=== PATIENT | male | born 1990 | race American Indian/Alaskan Native ===

== ENCOUNTER 2017-05-12 19:48 | Emergency (ER) | payer OTHER ==
[2017-05-12 19:55] VITALS: BP 150/95
[2017-05-12] MEDS ORDERED: ROBITUSSIN PO ONE (20:43)
--- NOTE | 2017-05-12 20:59 | Emergency Department Report ---
HPI - General Chief Complaint: Upper Respiratory Infection Time Seen by Provider: 05/12/17 20:43 - HPI HPI: he is a 26-year-old male with no prior medical history who presents to ED complaining of cough and congestion 3 days. Patient states THAT about 3 days ago with numbness and intermittent since then. Patient states he took some TheraFlu and Robitussin with no relief. Patient states coughing has gotten worse today and he was coughing so much that he had an episode of vomiting. She states cough is dry and nonproductive,he feels like he needs to cough up something but nothing coming up. He denies any fevers/chills/nausea/chest pain/redness of breath abdominal pain/ sick contacts, travel, or any other problems ED Past Medical Hx - Past Medical History Previous Medical History?: No - Surgical History Past Surgical History?: No - Social History Smoking Status: Never Smoker Substance Use Type: Alcohol - Medications Home Medications: Home Medications Medication Instructions Recorded Confirmed Last Taken Type ALBUTEROL Inhaler [ProAir HFA 2 puff IH TID #1 pump 05/12/17 Unknown Rx Inhaler] guaiFENesin [Mucinex] 600 mg PO BID #20 tab.er.12h 05/12/17 Unknown Rx ED Review of Systems ROS: Stated complaint: COUGHING Other details as noted in HPI Constitutional: denies: chills, fever Eyes: denies: eye pain, eye discharge, vision change ENT: congestion. denies: ear pain, throat pain Respiratory: cough. denies: shortness of breath, wheezing Cardiovascular: denies: chest pain, palpitations Endocrine: no symptoms reported Gastrointestinal: denies: abdominal pain, nausea, diarrhea Genitourinary: denies: urgency, dysuria Musculoskeletal: denies: back pain, joint swelling, arthralgia Skin: denies: rash, lesions Neurological: denies: headache, weakness, paresthesias Psychiatric: denies: anxiety, depression Hematological/Lymphatic: denies: easy bleeding, easy bruising Physical Exam - Physical Exam Vital Signs: Vital Signs 05/12/17 05/12/17 19:50 19:53 Temperature 98.4 F 98.4 F Pulse Rate 89 87 Respiratory 18 18 Rate Blood Pressure 150/95 150/95 O2 Sat by Pulse 93 95 Oximetry Physical Exam: GENERAL: Alert and oriented x3, no apparent distress, Normal Gait, atraumatic. HEAD: Head is normocephalic and a-traumatic. EYES: Extra ocular muscles are intact. Pupils are equal, round, and reactive to light and accommodation. EARS: symetrical, atraumatic, non tender, ear canal clear and moderate cerumen, tympanic membrance non inflamed. gross auditory nml bilaterally. NOSE: Nose symetrical, Nontender,Nares appeared normal. MOUTH:Mouth is well hydrated and without lesions. Tonsils nonerythematous or swollen, Uvula midline, Tongue not elevated. Mucous membranes are moist. Posterior pharynx clear, no exudate or lesions. Patent airways. NECK: Supple. Non edematous, No lymphadenopathy or thyromegaly. No C-spine tenderness LUNGS: Symetrical with respiration, No wheezing, no rales or crackles, CTAB. HEART: S1, S2 present, regular rate and rhythm without murmur, no rubs, no gallops. Non tender to palpation SKIN: Warm and dry, No lesions, No ulceration or induration present. ED Course Vital Signs 05/12/17 05/12/17 19:50 19:53 Temperature 98.4 F 98.4 F Pulse Rate 89 87 Respiratory 18 18 Rate Blood Pressure 150/95 150/95 O2 Sat by Pulse 93 95 Oximetry ED Medical Decision Making - Radiology Data Radiology results: report reviewed, image reviewed FINAL REPORT EXAM: XR CHEST ROUTINE 2V HISTORY: cough TECHNIQUE: Two views of the chest Comparison: None FINDINGS: Normal heart size. Mildly prominent left hilum appears to be vascular on the 2nd frontal image. Clear well expanded lungs without focal infiltrate or consolidation. Posterior costophrenic angles are clipped on the lateral projection. IMPRESSION: Mildly prominent left hilum. This appears to be a vascular shadow but lymph node or mass cannot entirely be excluded. Short interval follow-up or CT could be performed. Clear lungs. Transcribed By: LEANNE Dictated By: RAKEL RAZO Electronically Authenticated By: RAKEL RAZO Signed Date/Time: 05/12/17 6868 - Medical Decision Making 26-year-old male presents with bronchitis ED course: Patient received prednisone and Robitussin ED Chest x-ray ordered. Chest x-ray reveals no acute pulmonary infections I discussed his findings with the patient. I discussed the patient to take medication as discussed and follow up with primary care physician. I discussed with the patient that if symptoms worsen to return to ED immediately. Vital signs are normal patient is acute respiratory distress. - Differential Diagnosis bronchitis, upper respiratory infection, pneumonia Critical care attestation.: If time is entered above; I have spent that time in minutes in the direct care of this critically ill patient, excluding procedure time. ED Disposition Clinical Impression: Bronchitis Disposition: DC-01 TO HOME OR SELFCARE Is pt being admited?: No Does the pt Need Aspirin: No Condition: Stable Instructions: Chronic Bronchitis (ED) Additional Instructions: Make sure to follow up with the primary care physician as discussed. Take all your medications as you've been prescribed. If you have any worsening symptoms or develop new symptoms please return to ED immediately. Prescriptions: ALBUTEROL Inhaler [ProAir HFA Inhaler] 2 puff IH TID #1 pump guaiFENesin [Mucinex] 600 mg PO BID #20 tab.er.12h Referrals: PRIMARY CARE, [Primary Care Provider] - 3-5 Days [facility] [Outside] - 3-5 Days [facility] [Outside] - 3-5 Days [facility] [Outside] - 3-5 Days Forms: Work/School Release Form(ED) Time of Disposition: 21:07
[2017-05-12] MEDS ORDERED: DELTASONE PO ONE (21:02)
--- NOTE | 2017-05-12 21:17 | XRay Report ---
FINAL REPORT EXAM: XR CHEST ROUTINE 2V HISTORY: cough TECHNIQUE: Two views of the chest Comparison: None FINDINGS: Normal heart size. Mildly prominent left hilum appears to be vascular on the 2nd frontal image. Clear well expanded lungs without focal infiltrate or consolidation. Posterior costophrenic angles are clipped on the lateral projection. IMPRESSION: Mildly prominent left hilum. This appears to be a vascular shadow but lymph node or mass cannot entirely be excluded. Short interval follow-up or CT could be performed. Clear lungs.
== END 2017-05-12 21:57 | disposition home or self-care (01) ==
LOC: ED 19:48
DX: J40 Bronchitis, not specified as acute or chronic (principal)
CPT/HCPCS: 71020; 99283; J7512

== ENCOUNTER 2017-06-24 11:25 | Emergency (ER) | payer OTHER ==
[2017-06-24] MEDS ORDERED: NACL 0.9% 1000 ML 1,000 ML IV ONE (12:30)
[2017-06-24 13:07] LABS: Basophils % (Auto) 0.6 % (0.0-1.8); Eosinophils # (Auto) 0.2 K/mm3 (0.0-0.4); Eosinophils % (Auto) 3.4 % (0.0-4.3); Hematocrit 49.1 % (35.5-45.6); Hemoglobin 15.5 gm/dl (11.8-15.2); Lymphocytes # (Auto) 1.4 K/mm3 (1.2-5.4); Lymphocytes % (Auto) 28.5 % (13.4-35.0); Mean Corpuscular HGB Conc 32 % (32-34); Mean Corpuscular Hemoglobin 27 pg (28-32); Mean Corpuscular Volume 87 fl (84-94); Monocytes # (Auto) 0.5 K/mm3 (0.0-0.8); Monocytes % (Auto) 9.5 % (0.0-7.3); Platelet Count 165 K/mm3 (140-440); Red Blood Count 5.66 M/mm3 (3.65-5.03); Red Cell Distribution Width 14.1 % (13.2-15.2)
[2017-06-24 13:17] LABS: INR 0.95 (0.87-1.13)
[2017-06-24 13:18] LABS: Partial Thromboplastin Time 27.4 Sec. (24.2-36.6)
[2017-06-24] MEDS ORDERED: PEPCID IV ONE (13:21)
[2017-06-24] MEDS ORDERED: ZOFRAN IV ONE (13:21)
[2017-06-24 13:31] LABS: Alanine Aminotransferase 27 units/L (7-56); Albumin 4.5 g/dL (3.9-5); BUN/Creatinine Ratio 17; Blood Urea Nitrogen 17 mg/dL (9-20); Calcium 8.9 mg/dL (8.4-10.2); Creatine Kinase MB 7.7 ng/mL (0.0-4.0); Hemolysis Index 18; Lipase 26 units/L (13-60)
--- NOTE | 2017-06-24 14:09 | Emergency Department Report ---
Vomiting/Diarrhea - HPI Chief Complaint: GI Bleed Stated Complaint: VOMITING BLOOD/CHEST PUMPING Time Seen by Provider: 06/24/17 13:17 Duration: Today Severity: moderate Nausea/Vomiting Severity: Moderate Diarrhea Severity: None Pain Location: Epigastric Pain Severity: Mild Symptoms: Yes Able to Tolerate Fluids, No Watery Diarrhea, No Bloody diarrhea, No Fever, No Recent Unusual Foods, No Recent Untreated Water, No Recent use of Antibiotics, No Family w/ Similar Symptoms, No Contacts w/ Similar Symptoms, No Rash, No Hematuria, No Recent URI Symptoms Other History: Patient is a 27-year-old [place] male who drank alcohol heavily last night and has several episodes of vomiting with streaks of blood. Patient states that he discontinued this morning. Patient states he has a burning sensation in the chest as well. Patient states his discomfort is a 5 out of 10. Patient denies any other complaints at this time. ED Review of Systems ROS: Stated complaint: VOMITING BLOOD/CHEST PUMPING Other details as noted in HPI Comment: All other systems reviewed and negative ED Past Medical Hx - Past Medical History Previous Medical History?: Yes Hx Asthma: Yes Additional medical history: bronchitis - Surgical History Past Surgical History?: No - Social History Smoking Status: Never Smoker Substance Use Type: Alcohol - Medications Home Medications: Home Medications Medication Instructions Recorded Confirmed Last Taken Type ALBUTEROL Inhaler [ProAir HFA 2 puff IH TID #1 pump 05/12/17 Unknown Rx Inhaler] guaiFENesin [Mucinex] 600 mg PO BID #20 tab.er.12h 05/12/17 Unknown Rx Famotidine [Pepcid] 20 mg PO BID #6 tablet 06/24/17 Unknown Rx Ondansetron [Zofran Odt] 4 mg PO TID #6 tab.rapdis 06/24/17 Unknown Rx Vomiting Diarrhea Exam - Exam General: Vital signs noted. No distress. Alert and acting appropriately. HEENT: Yes Moist Mucous Membranes, No Pharyngeal Erythema, No Pharyngeal Exudates, No Rhinorrhea, No Conjuctival Injection, No Frontal Tenderness, No Maxillary Tenderness Neck: No Adenopathy, No Rigidity Lungs: Yes Clear Lung Sounds, Yes Good Air Exchange, No Wheezes, No Stridor, No Cough, No Nasal Flaring, No Retractions, No Use of Accessory Muscles Heart exam: Regular: Yes, Murmur: No, Tachycardia: No Abdomen: Tenderness: No, Peritoneal Signs: No, Distention: No, Hyperactive Bowel sounds: No Skin exam: Rash: No, Edema: No, Normal turgor: Yes Neurologic: Alert and oriented, no deficits. Musculoskeletal: Unremarkable. ED Course Vital Signs 06/24/17 12:26 Temperature 97.9 F Pulse Rate 73 Respiratory 18 Rate Blood Pressure 149/101 O2 Sat by Pulse 100 Oximetry ED Medical Decision Making - Lab Data Result diagrams: 06/24/17 12:30 06/24/17 12:30 - EKG Data EKG shows normal: sinus rhythm, axis, intervals, QRS complexes, ST-T waves Rate: normal - EKG Data Interpretation: no acute changes, normal EKG, other (time of interpretation 1238 ) - Medical Decision Making Patient is a 27-year-old [place] male who is presenting with alcoholic gastritis patient has several episodes of nausea vomiting was given fluids and Zofran and Pepcid A she was feeling better and will be discharged home Critical care attestation.: If time is entered above; I have spent that time in minutes in the direct care of this critically ill patient, excluding procedure time. ED Disposition Clinical Impression: Alcoholic gastritis with bleeding Qualifiers: Chronicity: acute Qualified Code(s): K29.21 - Alcoholic gastritis with bleeding Disposition: DC-01 TO HOME OR SELFCARE Is pt being admited?: No Does the pt Need Aspirin: No Condition: Stable Instructions: Gastritis (ED) Prescriptions: Famotidine [Pepcid] 20 mg PO BID #6 tablet Ondansetron [Zofran Odt] 4 mg PO TID #6 tab.placido
[2017-06-24 14:57] VITALS: BP 139/74
== END 2017-06-24 14:56 | disposition home or self-care (01) ==
LOC: ED 11:25
DX: K29.21 Alcoholic gastritis with bleeding (principal)
CPT/HCPCS: 36415; 80053; 82550; 82553; 83690; 84484; 85025; 85610; 85730; 86850; 86900; 86901; 93005; 93010; 96361; 96374; 96375; 99284; J2405; J7030